=== PATIENT | male | born 1970 | race Caucasian/White ===

== ENCOUNTER → 2019-12-18 | Outpatient (CLI) | payer BC ==
--- NOTE | 2019-12-18 15:31 | PFTRPT ---
Height: 67.00 Inches Weight: 222.00 Lbs BSA: 2.11 Diagnosis: R06 DATE OF STUDY: 12/18/2019 ORDERED BY: Wayne Hamlin Spirometry: Pre and post bronchodilator study of excellent technical quality. Forced vital capacity normal. FEV1 out of proportion. Obstructive index is, therefore, reduced. Flow Volume Loop: Expiratory limb of the flow volume loop consistent with flow rate limitation. Significant bronchodilator response is identified. Lung Volumes: Total lung capacity is elevated. Residual volume consistent with air trapping. Diffusing Capacity: Diffusing capacity is normal and remains normal when corrected for alveolar volume. Hemoglobin: Hemoglobin acceptable at 14.3. Airway Mechanics: Airway resistance elevated with a concomitant decrease in airway conductance. IMPRESSION: Moderate obstructive ventilatory impairment with significant bronchodilator response and underlying air trapping. Please correlate clinically. MTDD
--- NOTE | 2019-12-19 02:32 | REP ---
Clinical: Dyspnea . Comparison: 09/23/2015 . Technique: PA and lateral. Findings: The mediastinum and cardiac silhouette are normal. The lung hernandez are clear and without acute consolidation, effusion, or pneumothorax. The skeletal structures are intact and normal. Impression: 1. No acute cardiopulmonary process. Electronically Signed by Robert Marie MD 12/19/2019 02:23 A
== END ==
LOC: M CARPUL 14:55
PROVIDERS: ATTEND Physician Assistant
DX: R06.00 Dyspnea, unspecified (principal)

== ENCOUNTER 2021-03-18 11:20 | Emergency (ER) | payer BC, OTHER ==
[~2021-03-18] VITALS: Ht 172.7 cm; Wt 102.4 kg
--- NOTE | 2021-03-18 12:01 | REP ---
INDICATION: Fall onto L shoulder. COMPARISON: None. TECHNIQUE: Three views of the left shoulder were performed. FINDINGS: The acromioclavicular and glenohumeral relationships are within normal limits. There is no acute fracture or destructive osseous lesion. IMPRESSION: Within normal limits <Electronically signed by Blayne Rodrigues > 03/18/21 1157
[2021-03-18] MEDS ORDERED: KETOROLAC TROMETHAMINE 10 MG TAB PO ONE (12:25)
[2021-03-18] MEDS ORDERED: LIDOCAINE 5% (LIDODERM) PATCH TD ONE (12:25)
[2021-03-18 12:41] VITALS: BP 144/99
[2021-03-18] MEDS ORDERED: **NOTE PATIENT COMMENT** MISC XX SCH (21:00)
== END 2021-03-18 12:45 | disposition home or self-care (01) ==
LOC: M ED 11:20
DX: S43.422A Sprain of left rotator cuff capsule, initial encounter (principal); W19.XXXA Unspecified fall, initial encounter; Y92.89 Other specified places as the place of occurrence of the external cause; Y93.9 Activity, unspecified; Y99.0 Civilian activity done for income or pay; J45.909 Unspecified asthma, uncomplicated

== ENCOUNTER → 2023-06-08 | Outpatient (REF) | payer OTHER | LOC: M SFHCDERM 14:17 | PROVIDERS: ATTEND Physician Assistant | DX: L30.9 Dermatitis, unspecified (principal); L57.0 Actinic keratosis ==